=== PATIENT | female | born 1965 | race Caucasian/White ===

== ENCOUNTER 2020-08-07 16:17 | Outpatient (CLI) | payer SELFPAY ==
--- NOTE | ~2020-08-07 | MM_ITS ---
EXAMINATION: MM screening jann BI w agus HISTORY: Screening TECHNIQUE: Craniocaudal and mediolateral oblique 3-D tomosynthesis images were obtained and synthetic 2-D images were generated. CAD analysis was submitted and interpreted. COMPARISON: Comparison to multiple prior studies sequentially, with oldest reviewed study dated 11/2010. BREAST PARENCHYMAL COMPOSITION: There are scattered areas of fibroglandular density. FINDINGS: There is no evidence of suspicious mass, calcification, or architectural distortion to sugg est malignancy in either breast. There has been no suspicious interval change. IMPRESSION: 1. No mammographic evidence of malignancy. 2. Recommend routine screening mammography in one year. BI-RADS Category 1: Negative Reviewed, dictated and finalized at location A.
== END 2020-08-07 16:18 | disposition home or self-care (01) ==
LOC: ANHIMG 16:24
PROVIDERS: PCP Internal Medicine; Visit Provider Nurse Practitioner
DX: Z12.31 Encounter for screening mammogram for malignant neoplasm of breast (principal)
CPT/HCPCS: 77063; 77067

== ENCOUNTER 2020-08-17 09:12 | Outpatient (NON) | payer OTHER, SELFPAY ==
[2020-08-17 23:22] LABS: SARS-CoV-2 RNA PCR Negative
== END 2020-08-17 09:13 ==
PROVIDERS: PCP Internal Medicine; Visit Provider Nurse Practitioner
DX: Z20.828 Contact with and (suspected) exposure to other viral communicable diseases (principal); R50.9 Fever, unspecified
CPT/HCPCS: 87635; C9803; U0003

== ENCOUNTER 2021-11-05 09:02 | Outpatient (CLI) | payer SELFPAY ==
--- NOTE | ~2021-11-05 | MM_ITS ---
EXAMINATION: MM screening jann BI w agus HISTORY: Screening TECHNIQUE: Craniocaudal and mediolateral oblique 3-D tomosynthesis images were obtained and synthetic 2-D images were generated. CAD analysis was submitted and interpreted. COMPARISON: Comparison to multiple prior studies sequentially, with oldest reviewed study dated 07/18. BREAST PARENCHYMAL COMPOSITION: Breast composed of scattered areas of fibroglandular density. FINDINGS: There is a developing mass in the subareolar location of the left breast. The right breast is stable without evidence for malignancy. IMPRESSION: 1. Developing left breast mass. 2. Additional mammographic views and possible breast ultrasound are recommended. BI-RADS Category 0: Incomplete: Needs additional imaging evaluation. Reviewed, dictated and finalized at location A. ER PLANT ATTENDANT IMPRESSION: 1. Developing left breast mass. 2. Additional mammographic views and possible breast ultrasound are recommended . BI-RADS Category 0: Incomplete: Needs additional imaging evaluation.
--- NOTE | ~2021-11-05 | DEXA_ITS ---
Bone Density Report Name: SOPHIA ALONSO Age: 56 Sex: Female Ethnicity: White Date of : 1965 Indication: postmenopausal; hysterectomy; Referring Provider: Veronica Krishna Study: Bone densitometry was performed. Exam Date: November 05, 2021 Accession number: [id number] Bone Density: Region BMD T-score Z-score Classification AP Spine (L1-L4) 0.992 -0.5 0.6 Normal Femoral Neck (Left) 0.894 0.4 1.5 Normal Total Hip (Left) 1.093 1.2 2.0 Normal Total Hip Bilateral Avg 1.092 1.2 2.0 Normal Femoral Neck (Right) 0.908 0.5 1.6 Normal Total Hip (Right) 1.089 1.2 1.9 Normal World Health Organization criteria for BMD impression classify patients as: Normal (T-score at or above -1.0), Osteopenia (T-score between -1.0 and -2.5), or Osteoporosis (T-score at or below -2.5). 10-year Fracture Risk: FRAX not reported because: All T-scores for Spine Total, Hip Total, Femoral Neck at or above -1.0 Previous Exams: Region Exam Age BMD T-score BMD Change BMD Change Date g/cm2 vs Baseline vs Previous AP Spine(L1-L4) 11/05/2021 56 0.992 -0.5 -0.070(-6.6%)* -0.070(-6.6%)* 10/20/2016 51 1.062 0.1 Total Hip(Left) 11/05/2021 56 1.093 1.2 0.019(1.8%) 0.019(1.8%) 10/20/2016 51 1.074 1.1 Total Hip(Right) 11/05/2021 56 1.089 1.2 -0.058(-5.1%)* -0.058(-5.1%)* 10/20/2016 51 1.147 1.7 *Denotes significance at 95% confidence level, LSC for AP Spine = 0.022 g/cm2, LSC for Total Hip = 0.027 g/cm2 Clinical Information Provided by Patient: Has used the following medications: Vitamin D, Calcium Has the following medical conditions: Hysterectomy Patient maximum height was 63 Menopause Age: 48 Drinks caffeinated beverages Onset of menses at age 14 Number of children 2 Impression: The patient has normal bone mass. The BMD for the AP Spine(L1-L4) decreased, changing by -6.6% since the last DXA exam. The BMD for the Total Hip(Right) decreased, changing by -5.1% since the last DXA exam. Discussion: BONE DENSITY IS ABOVE THE MINIMUM DESIRABLE LEVEL AT ALL SKELETAL SITES TESTED. This patient?s bone mineral density is above the minimum desirable level (T-score -1.0 or better) at all sites measured. The patient should follow a healthful lifestyle (good nutrition with adequate calcium and vitamin D, and appropriate weight-bearing exercise). Follow-Up: Consider repeating this study in 3 to 4 years to reassess this patient's status, or sooner if there is
== END 2021-11-05 09:03 | disposition home or self-care (01) ==
LOC: ANHIMG 09:07
PROVIDERS: PCP Internal Medicine; Visit Provider Nurse Practitioner
DX: Z12.31 Encounter for screening mammogram for malignant neoplasm of breast (principal); Z78.0 Asymptomatic menopausal state; R92.8 Other abnormal and inconclusive findings on diagnostic imaging of breast
CPT/HCPCS: 77063; 77067; 77080

== ENCOUNTER 2021-11-19 11:12 | Outpatient (CLI) | payer SELFPAY ==
--- NOTE | ~2021-11-19 | MM_ITS ---
EXAMINATION: MM diagnostic jann LT w agus HISTORY: Possible left breast mass on screening mammogram TECHNIQUE: Additional 3-D tomosynthesis images of the left breast were performed and synthetic 2-D im ages were generated. CAD analysis was submitted and interpreted. COMPARISON: 11/05/2021,08/07/2020,10/20/2016 FINDINGS: There is a return to baseline fibroglandular appearance with spot compression of the left b reast in the area questioned on screening mammogram. No suspicious mass, calcification, or architectu ral distortion are identified. IMPRESSION: 1. No mammographic evidence of malignancy. 2. Recommend routine screening mammography in one year. BI-RADS Category 1: Negative Reviewed, dictated and finalized at location A. RY COOK APPRENTICE
== END 2021-11-19 11:13 | disposition home or self-care (01) ==
LOC: ANHIMG 11:18
PROVIDERS: PCP Internal Medicine; Visit Provider Nurse Practitioner
DX: R92.8 Other abnormal and inconclusive findings on diagnostic imaging of breast (principal)
CPT/HCPCS: 77061; 77065; G0279

== ENCOUNTER → 2021-12-27 00:31 | Outpatient (CLI) | payer MEDICAID, SELFPAY ==
[2021-12-27 13:55] LABS: Influenza A QL RT-PCR Negative (Negative); Influenza B QL RT-PCR Negative (Negative); SARS-CoV-2 RNA PCR Negative
== END ==
PROVIDERS: PCP Internal Medicine; Visit Provider Nurse Practitioner
DX: R05.9 Cough, unspecified (principal); Z20.822 Contact with and (suspected) exposure to COVID-19
CPT/HCPCS: 87502; C9803; U0003; U0005

== ENCOUNTER 2022-12-09 01:20 | Emergency (ER) | payer MEDICAID, SELFPAY ==
--- NOTE | ~2022-12-09 | CT_ITS ---
EXAMINATION: CT abdomen pelvis w con DATE: 12/09/2022 02:46 INDICATION: Right lower quadrant abdominal pain. TECHNIQUE: Computed tomography (CT) of the abdomen and pelvis was performed with 100 mL Omnipaque 350 intravenous contrast. Automated exposure control and iterative reconstruction technique were employe d. The dose-length product was 1073.72 mGy-cm. COMPARISON: None. FINDINGS: The visualized portions of the lung bases demonstrate minimal atelectasis. No pleural effus ion. The heart size is normal. No pericardial effusion. There is a small sliding hiatal hernia. There are surgical changes of gastric sleeve procedure. The liver, spleen, pancreas, adrenal glands, and k idneys are normal. The gallbladder is absent. There is fat stranding around an epiploic appendage of the ascending colon, consistent with epiploic appendagitis. The appendix is normal. There are no dila kim loops of bowel. There are no pathologically enlarged lymph nodes. There is no free intraperitonea l fluid. There is mild lumbar spondylosis. IMPRESSION: 1. Epiploic appendagitis of the ascending colon. Reviewed, dictated and finalized at location A. LEVEL DEVELOPER
[2022-12-09 01:26] VITALS: BP 139/68; PULSE 92; RESP 16; TEMP 36.9; O2SAT 96
--- NOTE | 2022-12-09 02:02 | PC.NURSE ---
Pt reports right side pain that started 3 days ago. States she woke up this morning to go to the bathroom and when she stood up the pain was so severe it took her breath and she broke into cold sweats. States she took some tylenol at home and is pain free at this time. Last BM was Wednesday and was normal. She felt nausea when pain spiked, but none now. Denies vomiting or diarrhea. Denies pain with urination or blood in her urine.
[2022-12-09 02:06] LABS: Basophils Absolute Auto 0.1 K/mm3 (0.0-0.1); Basophils Percent Auto 0.6 % (0.2-1.2); Eosinophils Absolute Auto 0.2 K/mm3 (0-0.3); Eosinophils Percent Auto 2.3 % (0-4.4); Hematocrit 41.8 % (37.0-47.0); Immature Granulocyte Absolute 0.02 K/mm3 (0.00-0.031); Immature Granulocyte Percent A 0.2 % (0-0.5); Lymphocytes Absolute Auto 3.02 K/mm3 (0.9-3.2); Lymphocytes Percent Auto 33.6 % (18.3-44.2); Mean Corpuscular HGB Conc 33.5 g/dl (32-36); Mean Corpuscular Hemoglobin 30.2 pg (26-34); Mean Corpuscular Volume 90.1 fl (80-100); Mean Platelet Volume 9.9 fl (7.4-10.4); Monocytes Absolute Auto 0.7 K/mm3 (0.1-0.6); Monocytes Percent Auto 7.8 % (2.6-8.5); Neutrophils Percent Auto 55.5 % (45.5-73.1); Platelet Count Result 300 k/mm3 (150-375); Red Blood Count 4.64 M/mm3 (4.2-5.4); Red Cell Distribution Width 12.3 % (11.5-14.5)
--- NOTE | 2022-12-09 02:09 | ED.ABDPAIN ---
HPI - Abdominal Pain General Chief Complaint: Abdominal Pain Stated Complaint: right lower abdominal pain Time Seen by Provider: 12/09/22 01:41 Source: patient Mode of arrival: ambulatory Limitations: no limitations History of Present Illness HPI narrative: 57-year-old female with past medical history of hypertension presents with right lower quadrant abdominal pain that began 3 days ago. The pain started when she was exercising and was initially mild. However at 0100 this morning she woke up with sharp 10 out of 10 pain that is worse when she took a deep breath. She became dizzy, diaphoretic, and had a syncopal episode that lasted 5 seconds which she believes was due to the pain. Denies fever, chills, cough, headache, chest pain, shortness of breath, nausea, vomiting, diarrhea, dysuria, urinary frequency, and urinary urgency. Related Data Home Medications Medication Instructions Recorded Confirmed aspirin 81 mg tablet,delayed 81 mg PO DAILY 08/16/20 08/15/21 release (Adult Low Dose Aspirin) cholecalciferol (vitamin D3) 25 25 mcg PO DAILY 08/16/20 08/15/21 mcg (1,000 unit) capsule multivitamin 1 tablet PO DAILY 08/16/20 08/15/21 krill oil 500 mg capsule mg PO DAILY 12/04/20 08/15/21 loratadine 10 mg tablet (Claritin) 10 mg PO DAILY 12/04/20 08/15/21 mecobalamin (vitamin B12) 5,000 mcg PO WEEKLY 12/04/20 08/15/21 mcg disintegrating tablet Allergies Allergy/AdvReac Type Severity Reaction Status Date / Time No Known Allergies Allergy Verified 12/09/22 01:21 [facility] Past Medical History Medical History (Updated 12/09/22 @ 04:16 by Sandip Wright MD) Chicken pox HTN (hypertension) Hyperlipidemia Left breast mass Surgical History Surgical History (Updated 12/09/22 @ 01:46 by Christine Sevilla RN) History of cholecystectomy History of hysterectomy Family History Family History Mother Family history of diabetes mellitus in first degree relative Hypertension Sibling Patient's brother is in good health Social History Social History Smoking status: Never smoker Smoking end date: 11/29/06 Alcohol intake: never Course Course Emergency Course: Remained pain-free majority of the time however she started having cramping of the abdomen I did give her Toradol and Zofran and subsided informed her about her lab work, CT findings. Vital Signs Vital signs: Vital Signs Temperature 36.9 C 12/09/22 01:26 Pulse Rate 92 12/09/22 01:26 Respiratory Rate 16 12/09/22 01:26 Blood Pressure 139/68 12/09/22 01:26 Pulse Oximetry 96 12/09/22 01:26 Oxygen Delivery Room Air 12/09/22 01:26 Temperature 36.9 C 12/09/22 01:26 Pulse Rate 78 12/09/22 03:27 Respiratory Rate 20 12/09/22 03:27 Blood Pressure 151/78 H 12/09/22 03:27 Pulse Oximetry 97 12/09/22 03:27 Oxygen Delivery Room Air 12/09/22 01:26 MDM - Abdominal Pain MDM Narrative Medical decision making narrative: Renal colic, biliary colic, acute appendicitis Lab Data 12/09/22 01:50 12/09/22 01:50 Labs: Lab Results 12/09/22 12/09/22 12/09/22 Range/Units 01:50 01:50 01:50 WBC 9.0 (4.5-10.0) K/mm3 RBC 4.64 (4.2-5.4) M/mm3 Hgb 14.0 (12.0-15.0) g/dL Hct 41.8 (37.0-47.0) % MCV 90.1 (80-100) fl MCH 30.2 (26-34) pg MCHC 33.5 (32-36) g/dl RDW 12.3 (11.5-14.5) % Plt Count 300 (150-375) k/mm3 MPV 9.9 (7.4-10.4) fl Immature Gran % (Auto) 0.2 (0-0.5) % Neut % (Auto) 55.5 (45.5-73.1) % Lymph % (Auto) 33.6 (18.3-44.2) % [place] % (Auto) 7.8 (2.6-8.5) % Eos % (Auto) 2.3 (0-4.4) % Baso % (Auto) 0.6 (0.2-1.2) % Lymph # (Auto) 3.02 (0.9-3.2) K/mm3 [place] # (Auto) 0.7 H (0.1-0.6) K/mm3 Eos # (Auto) 0.2 (0-0.3) K/mm3 Baso # (Auto) 0.1 (0.0-0.1) K/mm3 Abs Immat Gran (auto) 0.02 (0.0
[2022-12-09 02:12] LABS: Appearance Urine Slightly Cloudy (Clear); Bilirubin Urine Negative (Negative); Blood Urine Negative (Negative); Color Urine Yellow (Yellow); Glucose Urine UA Negative (Negative); Ketones Urine Negative (Negative); Leukocyte Esterase Ur Negative LEU/UL (Negative); Nitrate Urine Negative (Negative); Protein Urine 1+ mg/dL (Negative); Specific Grav Ur 1.015 (1.001-1.035); Urobilinogen Urine 0.2 mg/dL (<2.0); pH Urine >=9.0 (5.0-9.0)
[2022-12-09 02:19] LABS: Alanine Aminotransferase 34 U/L (6-35); Albumin Level 4.5 g/dL (3.5-5.1); Alkaline Phosphatase 94 U/L (38-126); Anion Gap 8 mmol/L (8-16); Aspartate Amino Transferase 31 U/L (14-36); Bacteria Urine Trace /hpf; Bilirubin,Total 0.4 mg/dL (0.2-1.3); Blood Urea Nitrogen 19 mg/dL (7-17); Calcium 9.3 mg/dL (8.4-10.2); Carbon Dioxide 28 mmol/L (22-30); Chloride 100 mmol/L (98-107); Estimated CRCL calculation 80 ml/min; Estimated Glomerular Filt Rate > 60; Glucose 119 mg/dL (65-110); Lipase 191 U/L (23-300); Mucus Urine Rare /lpf; Potassium 3.9 mmol/L (3.4-5.0); Sodium 136 mmol/L (137-145); Squamous Epithelial Cell Urine Rare /hpf (Few); WBC Urine 0-3 /hpf
[2022-12-09 02:26] LABS: Add Urine Microscopic? YES
[2022-12-09] MEDS: KETOROLAC 30 MG/ML VIAL (*BKC) IV PUSH (03:21)
[2022-12-09] MEDS: ONDANSETRON INJ 4 MG/2 ML VIAL IV PUSH (03:21)
[2022-12-09 03:27] VITALS: BP 151/78; PULSE 78; RESP 20; O2SAT 97
[2022-12-09 04:33] VITALS: BP 150/82; PULSE 77; RESP 18; O2SAT 99
== END 2022-12-09 04:34 | disposition home or self-care (01) ==
PROVIDERS: Emergency Provider Family Medicine; PCP Internal Medicine
DX: K63.89 Other specified diseases of intestine (principal); I10 Essential (primary) hypertension; E78.5 Hyperlipidemia, unspecified; Z90.710 Acquired absence of both cervix and uterus; Z87.891 Personal history of nicotine dependence; Z79.82 Long term (current) use of aspirin
CPT/HCPCS: 36415; 74177; 80053; 81001; 83690; 85025; 96374; 96375; 99284; J1885; J2405; Q9967

== ENCOUNTER 2023-01-22 14:00 | Outpatient (CLI) | payer MEDICAID, SELFPAY ==
--- NOTE | ~2023-01-22 | MM_ITS ---
EXAMINATION: MM screening jann BI w agus HISTORY: Screening mammogram TECHNIQUE: Craniocaudal and mediolateral oblique 3-D tomosynthesis images were obtained and synthetic 2-D images were generated. CAD analysis was submitted and interpreted. COMPARISON: 11/19/2021 diagnostic left mammogram 11/05/2021, 08/17/2020, 10/20/2016 bilateral screening mammogram examinations BREAST PARENCHYMAL COMPOSITION: There are scattered areas of fibroglandular density. FINDINGS: There is no evidence of suspicious mass, calcification, or architectural distortion to sugg est malignancy in either breast. There has been no suspicious interval change. IMPRESSION: 1. No mammographic evidence of malignancy. 2. Recommend routine screening mammography in one year. BI-RADS Category 1: Negative Reviewed, dictated and finalized at location A. ORATION SILVERSMITH
== END 2023-01-22 14:01 | disposition home or self-care (01) ==
LOC: ANHIMG 14:03
PROVIDERS: PCP Internal Medicine; Visit Provider Internal Medicine
DX: Z12.31 Encounter for screening mammogram for malignant neoplasm of breast (principal)
CPT/HCPCS: 77063; 77067

== ENCOUNTER 2023-07-24 07:28 | Outpatient (CLI) | payer OTHER, SELFPAY ==
[2023-07-24 08:58] LABS: Alanine Aminotransferase 33 U/L (6-35); Albumin Level 4.3 g/dL (3.5-5.1); Alkaline Phosphatase 71 U/L (38-126); Anion Gap 6 mmol/L (8-16); Aspartate Amino Transferase 35 U/L (14-36); Bilirubin,Total 0.6 mg/dL (0.2-1.3); Blood Urea Nitrogen 20 mg/dL (7-17); Carbon Dioxide 27 mmol/L (22-30); Chloride 105 mmol/L (98-107); Cholesterol 238 mg/dL (0-200); Estimated Glomerular Filt Rate > 60; Glucose 101 mg/dL (65-110); HDL Direct 42 mg/dL; Potassium 3.8 mmol/L (3.4-5.0); Sodium 138 mmol/L (137-145); Triglycerides 207 mg/dL (<150)
[2023-07-24 09:09] LABS: LDL Cholesterol Direct 141 mg/dL
[2023-07-24 09:10] LABS: Hemoglobin A1C 5.5 % (<5.7)
== END 2023-07-24 07:29 | disposition home or self-care (01) ==
PROVIDERS: PCP Nurse Practitioner; Visit Provider Nurse Practitioner
DX: E78.5 Hyperlipidemia, unspecified (principal); Z13.29 Encounter for screening for other suspected endocrine disorder; R73.9 Hyperglycemia, unspecified
CPT/HCPCS: 36415; 80053; 80061; 83036; 84443

== ENCOUNTER 2023-10-08 08:11 | Outpatient (CLI) | payer OTHER, SELFPAY ==
--- NOTE | ~2023-10-08 | XR_ITS ---
EXAMINATION: XR UGI wo kub DATE: 10/08/2023 09:10 INDICATION: Epigastric pain and reflux TECHNIQUE: The patient drank thick barium, gas-producing crystals, and thin barium. A total of fluoro scopic images of the esophagus, stomach, and proximal small bowel were obtained. Fluoroscopy exposure time was minutes. COMPARISON: CT dated 12/09/2022 FINDINGS: The esophagus is normal without mass or stricture. Esophageal motility is normal. Small to moderate-sized sliding-type hiatal hernia with gastroesophageal junction approximately 7-8 cm above t he level of the diaphragm. There is reflux of contrast into the intrathoracic portion of the stomach but no further gastroesophageal reflux was able to be elicited with provocative maneuvers. Stomach wh en distended appears relatively narrow throughout its course consistent with prior sleeve gastrectomy with suture line seen along the greater curvature of the stomach on prior CT. The visualized proxima l small bowel is normal. IMPRESSION: 1. Small to moderate-sized sliding-type hiatal hernia with reflux of contrast into the intrathoracic portion stomach but no further gastroesophageal reflux was able to be elicited with provocative maneu vers. 2. Decreased distention of the stomach which appears narrow throughout its course consistent with pauline or sleeve gastrectomy. Reviewed, dictated and finalized at location A. R IMPRESSION: 1. Small to moderate-sized sliding-type hiatal hernia with reflux of contrast i nto the intrathoracic portion stomach but no further gastroesophageal reflux wa s able to be elicited with provocative maneuvers. 2. Decreased distention of the stomach which appears narrow throughout its cour se consistent with prior sleeve gastrectomy.
== END 2023-10-08 08:12 | disposition home or self-care (01) ==
PROVIDERS: PCP Nurse Practitioner; Visit Provider Nurse Practitioner
DX: R10.13 Epigastric pain (principal); K44.9 Diaphragmatic hernia without obstruction or gangrene
CPT/HCPCS: 74240

== ENCOUNTER 2023-10-10 14:40 | Emergency (ER) | payer OTHER, SELFPAY ==
[2023-10-10 14:47] VITALS: BP 144/68; PULSE 91; RESP 16; TEMP 36.8; O2SAT 98
--- NOTE | 2023-10-10 14:49 | ED.FEMALEGU ---
HPI - Female Genitourinary General Chief complaint: Urogenital-Female Stated complaint: Uti symptoms Time Seen by Provider: 10/10/23 14:49 Source: patient, RN notes reviewed and old records reviewed Mode of arrival: ambulatory Limitations: no limitations History of Present Illness HPI Narrative: 58 year old female presents to [facility] care with complaints of UTI symptoms of urinary burning and also urgency for the past 3 days. Patient reports that this once came up after having a head cold for several days and has been drinking white soda. Patient reports that she usually gets 3-4 UTI's per year and she has seen an urologist in the past for her symptoms. Patient reports that she uses [employer] PH balanced perineal wipes when she gets symptoms and sometimes that will resolve her symptoms, has not taken any AZO for her symptoms. Patient denies any fevers, chills or sweats, denies any vomiting diarrhea or any CVA tenderness. MD elicited complaint: UTI Pertinent past history: recurrent UTIs Onset (ago): day(s) (3) Location of symptoms: perineum Severity scale (1-10): 4 Vaginal discharge: none Related Data Home Medications Medication Instructions Recorded Confirmed aspirin 81 mg tablet,delayed 81 mg PO DAILY 08/16/20 10/10/23 release (Adult Low Dose Aspirin) cholecalciferol (vitamin D3) 25 25 mcg PO DAILY 08/16/20 10/10/23 mcg (1,000 unit) capsule multivitamin 1 tablet PO DAILY 08/16/20 10/10/23 krill oil 500 mg capsule 500 mg PO DAILY 12/04/20 10/10/23 loratadine 10 mg tablet (Claritin) 10 mg PO DAILY 12/04/20 10/10/23 calcium acetate 667 mg tablet 667 mg PO ONCE 12/17/22 10/10/23 mecobalamin (vitamin B12) 5,000 5,000 mcg PO DAILY 07/23/23 10/10/23 mcg disintegrating tablet Allergies Allergy/AdvReac Type Severity Reaction Status Date / Time No Known Allergies Allergy Verified 10/10/23 14:52 Review of Systems Review of Systems: CONSTITUTIONAL: Denies fever, chills, or sweats. CARDIOVASCULAR: Denies chest pain, palpitations, or edema. RESPIRATORY: Denies cough or dyspnea. GASTROINTESTINAL: Denies abdominal pain, nausea, vomiting, or diarrhea. GENITOURINARY: Reports dysuria, frequency, urgency. Denies flank pain or hematuria. SKIN: Denies rash or itching. MUSCULOSKELETAL: Denies back pain or myalgia. Denies CVA tenderness NEUROLOGIC: Denies headache All systems reviewed & are unremarkable except as noted in HPI and below PMFSH Past Medical History Medical History (Updated 10/11/23 @ 10:51 by Rhina Gibbs NP) Chicken pox HTN (hypertension) Hyperlipidemia Left breast mass UTI (urinary tract infection) Surgical History Surgical History H/O gastric sleeve History of cholecystectomy History of hysterectomy Family History Family History Mother Family history of diabetes mellitus in first degree relative Hypertension COPD (chronic obstructive pulmonary disease) Social History Social History Smoking packs per day: 0 Smoking cigarettes per day: 0.0 Years smoked: 10 Smoking pack-years: 0.00 Smoking status: Former smoker Tobacco type: cigarettes Smoking end date: 11/29/06 Alcohol intake: never Substance use: never Lack of Transportation: No Lack of Food: Sometimes True Current Housing: I Have Housing Concerned About Future Housing: No Difficulty Paying Gas/Electric Bills: No Difficulty Paying for Meds: No Currently Unemployed: No Education: High School Diploma/GED Difficulty w/ Childcare or Family Care: No Living arrangements: with family Additional occupation/education comments: self employed Sexual Orientation (if Verbalized by the Patient): Straight or Heterosexual Comments At time of signature, agree with nursing past medical, surgical, social and family history. There is no rel
== END 2023-10-10 15:16 | disposition home or self-care (01) ==
PROVIDERS: Emergency Provider Registered Nurse; PCP Nurse Practitioner
DX: N39.0 Urinary tract infection, site not specified (principal); B96.20 Unspecified Escherichia coli [E. coli] as the cause of diseases classified elsewhere; Z87.891 Personal history of nicotine dependence; I10 Essential (primary) hypertension; E78.5 Hyperlipidemia, unspecified; Z98.84 Bariatric surgery status
CPT/HCPCS: 81003; 87077; 87086; 87088; 87186; 99213; G0463

== ENCOUNTER 2023-12-03 01:04 | Day surgery (SDC) | payer OTHER, SELFPAY ==
[2023-11-08 13:05] VITALS: BMI 33.5
--- NOTE | 2023-12-01 09:44 | SUR.PREOP ---
Patient called regarding upcoming procedure. Voicemail left regarding appointment times.
[2023-12-03 09:42] VITALS: BP 116/73; PULSE 99; RESP 16; TEMP 36.1; O2SAT 99
[2023-12-03] MEDS: LACTATED RINGERS 1,000 ML 150 ML IV CONT (09:44)
--- NOTE | 2023-12-03 10:48 | PM.HPGS ---
History of Present Illness History of Present Illness Consent: Risks, benefits, and alternatives have been discussed and questions answered. Patient agrees to proceed with procedure. Chief complaint: Family history of colon cancer Narrative: Roseline Wagner is a 58 year old female Referred for colon cancer screening. Her father had colon cancer. Her last colonoscopy was 7 years ago. Review of Systems Review of Systems: All systems reviewed & are unremarkable except as noted in HPI and below PMFSH Past Medical History Medical History Chicken pox HTN (hypertension) Hyperlipidemia Left breast mass UTI (urinary tract infection) Surgical History Surgical History H/O gastric sleeve History of cholecystectomy History of hysterectomy Family History Family History Mother Family history of diabetes mellitus in first degree relative Hypertension COPD (chronic obstructive pulmonary disease) Social History Social History Smoking packs per day: 1 Smoking cigarettes per day: 20.0 Years smoked: 10 Smoking pack-years: 10.00 Smoking status: Former smoker Tobacco type: cigarettes Smoking end date: 11/29/06 Alcohol intake: never Substance use: never Substance use type: does not use Lack of Transportation: No Lack of Food: Sometimes True Current Housing: I Have Housing Concerned About Future Housing: No Difficulty Paying Gas/Electric Bills: No Difficulty Paying for Meds: No Currently Unemployed: No Education: High School Diploma/GED Difficulty w/ Childcare or Family Care: No Living arrangements: with family Additional occupation/education comments: self employed Sexual Orientation (if Verbalized by the Patient): Straight or Heterosexual Spiritual care concerns: No Meds Home Medications and Allergies Home Medications Medication Instructions Recorded Confirmed Type aspirin 81 mg tablet,delayed 81 mg PO DAILY 08/16/20 12/03/23 History release (Adult Low Dose Aspirin) cholecalciferol (vitamin D3) 25 25 mcg PO DAILY 08/16/20 12/03/23 History mcg (1,000 unit) capsule multivitamin 1 tablet PO DAILY 08/16/20 12/03/23 History krill oil 500 mg capsule 500 mg PO DAILY 12/04/20 12/03/23 History loratadine 10 mg tablet (Claritin) 10 mg PO DAILY 12/04/20 12/03/23 History calcium acetate 667 mg tablet 667 mg PO DAILY 12/17/22 12/03/23 History losartan 25 mg tablet 25 mg PO DAILY #90 tabs 07/23/23 12/03/23 Rx mecobalamin (vitamin B12) 5,000 5,000 mcg PO DAILY 07/23/23 12/03/23 History mcg disintegrating tablet rosuvastatin 10 mg tablet 10 mg PO DAILY #90 tabs 07/27/23 12/03/23 Rx metoprolol succinate 25 mg See Rx Instructions .Route 08/27/23 12/03/23 Rx tablet,extended release 24 hr .COMPLEX #90 tabs Allergies Allergy/AdvReac Type Severity Reaction Status Date / Time No Known Allergies Allergy Verified 12/03/23 09:41 Vital Signs Vital Signs - 24 hr 12/03/23 09:42 Temperature 36.1 C L Pulse Rate 99 Respiratory Rate 16 Blood Pressure 116/73 Pulse Oximetry 99 Oxygen Delivery Room Air Exam Const: General: alert Orientation/consciousness: patient oriented x3 Resp: Auscultation: clear to auscultation bilaterally Cardio: Rhythm: regular rhythm GI: GI Palp: Yes Soft to palpation and No Tenderness to palpation present (GI) Neuro: General: patient oriented x3 Assessment and Plan Assessment and plan (1) Screening for colon cancer: Code(s): Z12.11 - Encounter for screening for malignant neoplasm of colon Status: Acute Assessment and Plan: Colonoscopy with possible biopsy or polypectomy or cautery or injection of substances.
--- NOTE | 2023-12-03 10:53 | WPDANESEPPF ---
Anes - Initial Pre Proc Eval Procedure: Operation Date: 12/03/23 11:00 Proposed Procedures p Colonoscopy - Momo Mascorro MD Date/Time: 12/03/23 10:53 Surgeon: Momo Mascorro MD Pre Op Diagnosis: Family history of colon cancer Patient Data Age: 58 Gender: F Height: 1.6 m Weight: 84.8 kg Last Vital Signs Temp 97 F L 12/03/23 09:42 Pulse 99 12/03/23 09:42 Resp 16 12/03/23 09:42 BP 116/73 12/03/23 09:42 Pulse Ox 99 12/03/23 09:42 O2 Del Method Room Air 12/03/23 09:42 Allergies Allergy/AdvReac Type Severity Reaction Status Date / Time No Known Allergies Allergy Verified 12/03/23 09:41 Home Medications Medication Instructions Recorded Confirmed Type aspirin 81 mg tablet,delayed 81 mg PO DAILY 08/16/20 12/03/23 History release (Adult Low Dose Aspirin) cholecalciferol (vitamin D3) 25 25 mcg PO DAILY 08/16/20 12/03/23 History mcg (1,000 unit) capsule multivitamin 1 tablet PO DAILY 08/16/20 12/03/23 History krill oil 500 mg capsule 500 mg PO DAILY 12/04/20 12/03/23 History loratadine 10 mg tablet (Claritin) 10 mg PO DAILY 12/04/20 12/03/23 History calcium acetate 667 mg tablet 667 mg PO DAILY 12/17/22 12/03/23 History losartan 25 mg tablet 25 mg PO DAILY #90 tabs 07/23/23 12/03/23 Rx mecobalamin (vitamin B12) 5,000 5,000 mcg PO DAILY 07/23/23 12/03/23 History mcg disintegrating tablet rosuvastatin 10 mg tablet 10 mg PO DAILY #90 tabs 07/27/23 12/03/23 Rx metoprolol succinate 25 mg See Rx Instructions .Route 08/27/23 12/03/23 Rx tablet,extended release 24 hr .COMPLEX #90 tabs Patient hx anesthesia problems: none Family hx anesthesia problems: none Results Review: All pre-operative results and documents have been reviewed as part of the pre-operative evaluation. [facility] Past Medical History Medical History Chicken pox HTN (hypertension) Hyperlipidemia Left breast mass UTI (urinary tract infection) Surgical History Surgical History H/O gastric sleeve History of cholecystectomy History of hysterectomy Family History Family History Mother Family history of diabetes mellitus in first degree relative Hypertension COPD (chronic obstructive pulmonary disease) Social History Social History Smoking packs per day: 1 Smoking cigarettes per day: 20.0 Years smoked: 10 Smoking pack-years: 10.00 Smoking status: Former smoker Tobacco type: cigarettes Smoking end date: 11/29/06 Alcohol intake: never Substance use: never Substance use type: does not use Lack of Transportation: No Lack of Food: Sometimes True Current Housing: I Have Housing Concerned About Future Housing: No Difficulty Paying Gas/Electric Bills: No Difficulty Paying for Meds: No Currently Unemployed: No Education: High School Diploma/GED Difficulty w/ Childcare or Family Care: No Living arrangements: with family Additional occupation/education comments: self employed Sexual Orientation (if Verbalized by the Patient): Straight or Heterosexual Spiritual care concerns: No Anes - Eval Final PreProcedure Day of Procedure 12/03/23 10:53 Patient weight: obese Heart: regular rate and rhythm Lungs: clear to auscultation Airway: Mallampati scale class II Neurological: alert and oriented Last oral intake: >/= 8 hours ASA classification: II Emergent: no Anesthetic plan: proceed Anesthesia type and monitoring: general GIVS and standard monitoring Results Review: All pre-operative results and documents have been reviewed as part of the pre-operative evaluation. Informed Consent: The patient's anesthetic plan and its attendant risks and benefits were discussed with the patient/family/POA. Questions were solicited and answers provided to the sa
[2023-12-03 11:31] VITALS: BP 130/72; PULSE 90; RESP 25; O2SAT 99
[2023-12-03 11:41] VITALS: BP 135/71; PULSE 83; RESP 14; O2SAT 100
[2023-12-03 11:51] VITALS: BP 112/63; PULSE 78; RESP 22; O2SAT 100
== END 2023-12-03 12:04 | disposition home or self-care (01) ==
PROVIDERS: PCP Nurse Practitioner; Visit Provider Internal Medicine Gastroenterology
PROC: 0DJD8ZZ Inspection of Lower Intestinal Tract, Via Natural or Artificial Opening Endoscopic (ICD-10-PCS; CPT 45378; principal; 2023-12-03 11:00)
DX: Z12.11 Encounter for screening for malignant neoplasm of colon (principal); Z80.0 Family history of malignant neoplasm of digestive organs; K64.8 Other hemorrhoids; I10 Essential (primary) hypertension; E78.5 Hyperlipidemia, unspecified; Z87.891 Personal history of nicotine dependence
CPT/HCPCS: 45378; J2001; J2704; J7120

== ENCOUNTER 2024-01-25 08:15 | Outpatient (CLI) | payer OTHER, SELFPAY ==
[2024-01-25 09:10] LABS: Hematocrit 41.4 % (37.0-47.0); Hemoglobin 13.7 g/dL (12.0-15.0); Mean Corpuscular HGB Conc 33.1 g/dl (32-36); Mean Corpuscular Volume 90.8 fl (80-100); Mean Platelet Volume 10.3 fl (7.4-10.4); Platelet Count Result 265 k/mm3 (150-375); Red Blood Count 4.56 M/mm3 (4.2-5.4); Red Cell Distribution Width 12.4 % (11.5-14.5); White Blood Count 6.4 K/mm3 (4.5-10.0)
[2024-01-25 09:19] LABS: Alanine Aminotransferase 43 U/L (6-35); Albumin Level 4.5 g/dL (3.5-5.1); Alkaline Phosphatase 72 U/L (38-126); Anion Gap 6 mmol/L (8-16); Aspartate Amino Transferase 41 U/L (14-36); Bilirubin,Total 0.7 mg/dL (0.2-1.3); Blood Urea Nitrogen 14 mg/dL (7-17); Calcium 9.5 mg/dL (8.4-10.2); Carbon Dioxide 30 mmol/L (22-30); Chloride 105 mmol/L (98-107); Cholesterol 157 mg/dL (0-200); Estimated Glomerular Filt Rate > 60; Glucose 102 mg/dL (65-110); HDL Direct 51 mg/dL; Potassium 3.7 mmol/L (3.4-5.0); Sodium 141 mmol/L (137-145); Triglycerides 153 mg/dL (<150)
[2024-01-25 09:55] LABS: LDL Cholesterol Direct 80 mg/dL
== END 2024-01-25 08:16 | disposition home or self-care (01) ==
LOC: ANHLAB 08:17
PROVIDERS: PCP Nurse Practitioner; Visit Provider Nurse Practitioner
DX: E78.5 Hyperlipidemia, unspecified (principal); R73.9 Hyperglycemia, unspecified; Z13.29 Encounter for screening for other suspected endocrine disorder
CPT/HCPCS: 36415; 80053; 80061; 83036; 84443; 85027

== ENCOUNTER 2024-02-24 08:55 | Outpatient (CLI) | payer OTHER, SELFPAY ==
[2024-02-29 14:11] LABS: FSH 63.5 mIU/mL (***)
[2024-03-04 22:42] LABS: Estradiol, Ultrasensitive 5 pg/mL
== END 2024-02-24 08:56 | disposition home or self-care (01) ==
PROVIDERS: PCP Nurse Practitioner; Visit Provider Student in an Organized Health Care Education/Training Program
DX: N95.1 Menopausal and female climacteric states (principal)
CPT/HCPCS: 36415; 82670; 83001; 84443

== ENCOUNTER 2024-03-10 19:10 | Emergency (ER) | payer OTHER, SELFPAY ==
[2024-03-10 19:29] VITALS: BP 146/89; PULSE 85; RESP 18; TEMP 36.8; O2SAT 98
--- NOTE | 2024-03-10 19:39 | ED.URI ---
HPI - URI/Sore Throat General Chief Complaint: Upper Respiratory Infection Stated Complaint: Sinus/Sore Throat Time Seen by Provider: 03/10/24 19:39 Source: patient Mode of arrival: ambulatory Limitations: no limitations History of Present Illness HPI Narrative: 59-year-old female presents with complaint nasal congestion, postnasal drainage, sore throat, cough, fatigue for 5-6 days. Afebrile. Patient states throat hurts really bad . Taking [place] without relief of symptoms. Reports that nasal drainage has changed from clear to yellowish green. All systems reviewed and negative except as noted above. Related Data Home Medications Medication Instructions Recorded Confirmed aspirin 81 mg tablet,delayed 81 mg PO DAILY 08/16/20 03/10/24 release (Adult Low Dose Aspirin) cholecalciferol (vitamin D3) 25 25 mcg PO DAILY 08/16/20 03/10/24 mcg (1,000 unit) capsule multivitamin 1 tablet PO DAILY 08/16/20 03/10/24 krill oil 500 mg capsule 500 mg PO DAILY 12/04/20 03/10/24 loratadine 10 mg tablet (Claritin) 10 mg PO DAILY 12/04/20 03/10/24 calcium acetate 667 mg tablet 667 mg PO DAILY 12/17/22 03/10/24 mecobalamin (vitamin B12) 5,000 5,000 mcg PO DAILY 07/23/23 03/10/24 mcg disintegrating tablet tobramycin 0.3 % eye drops 1 drp ophthalmic (eye) DIRECTED 03/10/24 03/10/24 Allergies Allergy/AdvReac Type Severity Reaction Status Date / Time No Known Allergies Allergy Verified 03/10/24 19:12 Review of Systems Review of Systems: CONSTITUTIONAL: Denies fever, chills, or sweats. reports fatigue. EYES: Denies visual changes, redness, or discharge. ENT: Reports rhinorrhea, congestion, sore throat. Denies otalgia. CARDIOVASCULAR: Denies chest pain, palpitations, or edema. RESPIRATORY: Reports cough. Denies dyspnea. GASTROINTESTINAL: Denies abdominal pain, nausea, vomiting, or diarrhea. GENITOURINARY: Denies dysuria or hematuria. SKIN: Denies rash or itching. MUSCULOSKELETAL: Denies back pain, joint pain, or myalgia. NEUROLOGIC: Denies headache, numbness, or weakness. PSYCHIATRIC: Denies anxiety or depression. All other systems reviewed are negative, except as documented in HPI. [facility] Past Medical History Medical History Chicken pox HTN (hypertension) Hyperlipidemia Left breast mass UTI (urinary tract infection) Surgical History Surgical History H/O gastric sleeve History of cholecystectomy History of hysterectomy Family History Family History Mother Family history of diabetes mellitus in first degree relative Hypertension COPD (chronic obstructive pulmonary disease) Social History Social History Smoking packs per day: 1 Smoking cigarettes per day: 20.0 Years smoked: 10 Smoking pack-years: 10.00 Smoking status: Former smoker Tobacco type: cigarettes Smoking end date: 11/29/06 Alcohol intake: never Substance use: never Substance use type: does not use Lack of Transportation: No Lack of Food: Sometimes True Current Housing: I Have Housing Concerned About Future Housing: No Difficulty Paying Gas/Electric Bills: No Difficulty Paying for Meds: No Currently Unemployed: No Education: High School Diploma/GED Difficulty w/ Childcare or Family Care: No Living arrangements: with family Additional occupation/education comments: self employed Sexual Orientation (if Verbalized by the Patient): Straight or Heterosexual Spiritual care concerns: No Comments At time of signature, agree with nursing past medical, surgical, social and family history. There is no relevant family history pertinent to the presenting complaint. Exam Narrative: GENERAL: This is a well-nourished, well-developed patient, in no apparent distress. HEAD: normocephal
== END 2024-03-10 20:10 | disposition home or self-care (01) ==
PROVIDERS: Emergency Provider Nurse Practitioner Family; PCP Nurse Practitioner
DX: J01.90 Acute sinusitis, unspecified (principal); Z20.822 Contact with and (suspected) exposure to COVID-19; Z87.891 Personal history of nicotine dependence; I10 Essential (primary) hypertension; E78.5 Hyperlipidemia, unspecified; Z98.84 Bariatric surgery status; Z79.82 Long term (current) use of aspirin
CPT/HCPCS: 87081; 87426; 87804; 87880; 99213; G0463

== ENCOUNTER 2024-04-17 18:55 | Emergency (ER) | payer OTHER, SELFPAY ==
[2024-04-17 19:03] VITALS: BP 125/108; PULSE 78; RESP 18; TEMP 36.6; O2SAT 99
--- NOTE | 2024-04-17 19:22 | ED.URI ---
HPI - URI/Sore Throat General Chief Complaint: Upper Respiratory Infection Stated Complaint: Strep Symptoms Source: patient and RN notes reviewed Mode of arrival: ambulatory Limitations: no limitations History of Present Illness HPI Narrative: Patient is a 59-year-old female who presents to the [facility] with complaints of sore throat starting yesterday. Patient also reports worsening sore throat. She also endorses nasal congestion and headache. She denies recent fevers. Denies cough, chest pain, or shortness of breath. Patient states that she frequently watches her grandkids that just tested positive for strep. She states that her son-in-law also tested positive. Related Data Home Medications Medication Instructions Recorded Confirmed aspirin 81 mg tablet,delayed 81 mg PO DAILY 08/16/20 04/17/24 release (Adult Low Dose Aspirin) cholecalciferol (vitamin D3) 25 25 mcg PO DAILY 08/16/20 04/17/24 mcg (1,000 unit) capsule multivitamin 1 tablet PO DAILY 08/16/20 04/17/24 loratadine 10 mg tablet (Claritin) 10 mg PO DAILY 12/04/20 04/17/24 calcium acetate 667 mg tablet 667 mg PO DAILY 12/17/22 04/17/24 mecobalamin (vitamin B12) 5,000 5,000 mcg PO DAILY 07/23/23 04/17/24 mcg disintegrating tablet tobramycin 0.3 % eye drops 1 drp ophthalmic (eye) DIRECTED 03/10/24 03/10/24 Allergies Allergy/AdvReac Type Severity Reaction Status Date / Time paroxetine [From Paxil] Allergy Severe Difficulty Verified 04/17/24 19:02 Swallowing Review of Systems Review of Systems: CONSTITUTIONAL: Denies fever, chills, or sweats. EYES: Denies visual changes, redness, or discharge. ENT: Denies otalgia. Reports sore throat. Reports congestion. CARDIOVASCULAR: Denies chest pain, palpitations, or edema. RESPIRATORY: Denies cough or dyspnea. GASTROINTESTINAL: Denies abdominal pain, nausea, vomiting, or diarrhea. GENITOURINARY: Denies dysuria or hematuria. SKIN: Denies rash or itching. MUSCULOSKELETAL: Denies back pain, joint pain, or myalgia. NEUROLOGIC: Reports headache but denies numbness or weakness. Pertinent positives per HPI. PMF Past Medical History Medical History Chicken pox HTN (hypertension) Hyperlipidemia Left breast mass UTI (urinary tract infection) Surgical History Surgical History H/O gastric sleeve History of cholecystectomy History of hysterectomy Family History Family History Mother Family history of diabetes mellitus in first degree relative Hypertension COPD (chronic obstructive pulmonary disease) Social History Social History Smoking packs per day: 1 Smoking cigarettes per day: 20.0 Years smoked: 10 Smoking pack-years: 10.00 Smoking status: Former smoker Tobacco type: cigarettes Smoking end date: 11/29/06 Alcohol intake: never Substance use: never Substance use type: does not use Lack of Transportation: No Lack of Food: Sometimes True Current Housing: I Have Housing Concerned About Future Housing: No Difficulty Paying Gas/Electric Bills: No Difficulty Paying for Meds: No Currently Unemployed: No Education: High School Diploma/GED Difficulty w/ Childcare or Family Care: No Living arrangements: with family Additional occupation/education comments: self employed Sexual Orientation (if Verbalized by the Patient): Straight or Heterosexual Spiritual care concerns: No Comments At the time of my signature, I reviewed and agree with the nursing past medical, surgical, social, and family history. There is no relevant family history pertinent to the patient complaint. Exam Narrative: GENERAL: This is a well-nourished, well-developed patient, in no apparent distress. HEAD: normocephalic, atraumatic. EYES: Scl
== END 2024-04-17 19:43 | disposition home or self-care (01) ==
PROVIDERS: Emergency Provider Nurse Practitioner; PCP Nurse Practitioner
DX: J02.9 Acute pharyngitis, unspecified (principal); Z87.891 Personal history of nicotine dependence; I10 Essential (primary) hypertension; E78.5 Hyperlipidemia, unspecified; Z98.84 Bariatric surgery status; Z79.82 Long term (current) use of aspirin
CPT/HCPCS: 87081; 87880; 99213; G0463

== ENCOUNTER 2024-05-13 11:06 | Outpatient (CLI) | payer OTHER, SELFPAY ==
--- NOTE | ~2024-05-13 | MM_ITS ---
EXAMINATION: MM screening jann BI w agus HISTORY: Screening TECHNIQUE: Craniocaudal and mediolateral oblique 3-D tomosynthesis images were obtained and synthetic 2-D images were generated. CAD analysis was submitted and interpreted. COMPARISON: Comparison to multiple prior studies sequentially, with oldest reviewed study dated 08/31. BREAST PARENCHYMAL COMPOSITION: Not dense: There are scattered areas of fibroglandular density. FINDINGS: There is no evidence of suspicious mass, calcification, or architectural distortion to sugg est malignancy in either breast. There has been no suspicious interval change. IMPRESSION: 1. No mammographic evidence of malignancy. 2. Recommend routine screening mammography in one year. BI-RADS Category 1: Negative Reviewed, dictated and finalized at location B.
== END 2024-05-13 11:07 | disposition home or self-care (01) ==
PROVIDERS: PCP Nurse Practitioner; Visit Provider Nurse Practitioner
DX: Z12.31 Encounter for screening mammogram for malignant neoplasm of breast (principal)
CPT/HCPCS: 77063; 77067

== ENCOUNTER 2024-07-14 12:33 | Outpatient (CLI) | payer OTHER, SELFPAY ==
--- NOTE | ~2024-07-14 | XR_ITS ---
3 VIEWS LUMBAR SPINE Ordering provider: Kimo Garcia MD History: . M54.9 - Dorsalgia, unspecified . Comparison: None. FINDINGS: VERTEBRAL BODIES:Mild levoscoliosis. No visible fracture or subluxation. Degenerative changes of the spine. DISK SPACES: Normal. SOFT TISSUES: Normal. IMPRESSION: No acute osseous abnormality lumbar spine. Reviewed, dictated and finalized at location A.
[2024-07-14 13:31] LABS: Basophils Percent Auto 0.4 % (0.2-1.2); Eosinophils Absolute Auto 0.1 K/mm3 (0-0.3); Eosinophils Percent Auto 1.2 % (0-4.4); Hematocrit 42.8 % (37.0-47.0); Hemoglobin 14.2 g/dL (12.0-15.0); Immature Granulocyte Absolute 0.02 K/mm3 (0.00-0.031); Immature Granulocyte Percent A 0.3 % (0-0.5); Lymphocytes Absolute Auto 2.15 K/mm3 (0.9-3.2); Lymphocytes Percent Auto 31.9 % (18.3-44.2); Mean Corpuscular HGB Conc 33.2 g/dl (32-36); Mean Corpuscular Hemoglobin 30.4 pg (26-34); Mean Corpuscular Volume 91.6 fl (80-100); Mean Platelet Volume 9.9 fl (7.4-10.4); Monocytes Absolute Auto 0.4 K/mm3 (0.1-0.6); Monocytes Percent Auto 5.9 % (2.6-8.5); Neutrophils Absolute Auto 4.1 K/mm3 (1.3-6.7); Neutrophils Percent Auto 60.3 % (45.5-73.1); Platelet Count Result 266 k/mm3 (150-375); Red Blood Count 4.67 M/mm3 (4.2-5.4); Red Cell Distribution Width 12.3 % (11.5-14.5); White Blood Count 6.7 K/mm3 (4.5-10.0)
[2024-07-14 13:32] LABS: Add Urine Microscopic? NO; Appearance Urine Clear (Clear); Bilirubin Urine Negative (Negative); Blood Urine Negative (Negative); Color Urine Yellow (Yellow); Glucose Urine UA Negative (Negative); Ketones Urine 1+ mg/dL (Negative); Leukocyte Esterase Ur Negative LEU/UL (Negative); Nitrate Urine Negative (Negative); Protein Urine Negative (Negative); Specific Grav Ur 1.008 (1.001-1.035); Urobilinogen Urine 0.2 mg/dL (<2.0); pH Urine 5.5 (5.0-9.0)
[2024-07-14 13:37] LABS: Hemoglobin A1C 5.8 % (<5.7)
[2024-07-14 13:38] LABS: Alanine Aminotransferase 26 U/L (6-35); Albumin Level 4.8 g/dL (3.5-5.1); Alkaline Phosphatase 69 U/L (38-126); Anion Gap 11 mmol/L (4-12); Aspartate Amino Transferase 34 U/L (14-36); Bilirubin,Total 0.6 mg/dL (0.2-1.3); Blood Urea Nitrogen 15 mg/dL (7-17); Calcium 9.7 mg/dL (8.4-10.2); Carbon Dioxide 29 mmol/L (22-30); Chloride 98 mmol/L (98-107); Cholesterol 196 mg/dL (0-200); Estimated Glomerular Filt Rate > 60; Glucose 98 mg/dL (65-110); HDL Direct 64 mg/dL; Potassium 3.6 mmol/L (3.4-5.0); Sodium 138 mmol/L (137-145); Triglycerides 234 mg/dL (<150)
[2024-07-14 13:49] LABS: LDL Cholesterol Direct 97 mg/dL
[2024-07-14 13:55] LABS: Free T4 Free Thyroxine 1.19 ng/mL (0.78-2.19)
== END 2024-07-14 12:34 | disposition home or self-care (01) ==
LOC: ANHLAB 12:35
PROVIDERS: PCP Internal Medicine; Visit Provider Internal Medicine
DX: M54.9 Dorsalgia, unspecified (principal); I10 Essential (primary) hypertension; Z79.899 Other long term (current) drug therapy; Z13.29 Encounter for screening for other suspected endocrine disorder; R73.9 Hyperglycemia, unspecified; E78.5 Hyperlipidemia, unspecified; E55.9 Vitamin D deficiency, unspecified
CPT/HCPCS: 36415; 72110; 80053; 80061; 81003; 82306; 83036; 84439; 84443; 85025

== ENCOUNTER 2024-07-18 07:51 | Outpatient (CLI) | payer OTHER, SELFPAY ==
[2024-07-19 14:23] LABS: Creatinine, Random Urine 139 mg/dL (20-275); Total Protein/Creatinine Ratio 50 mg/g creat (24-184)
[2024-07-19 17:59] LABS: Protein, Total 6.7 g/dL (6.1-8.1)
[2024-07-20 09:24] LABS: Alpha 1 Globulin 0.3 g/dL (0.2-0.3); Alpha 2 Globulin 0.6 g/dL (0.5-0.9); Beta 1 Globulin 0.4 g/dL (0.4-0.6)
== END 2024-07-18 07:52 | disposition home or self-care (01) ==
PROVIDERS: PCP Internal Medicine; Visit Provider Internal Medicine
DX: R77.8 Other specified abnormalities of plasma proteins (principal)
CPT/HCPCS: 36415; 82570; 84155; 84156; 84165; 84166

== ENCOUNTER 2024-07-20 10:25 | Outpatient (CLI) | payer OTHER, SELFPAY ==
--- NOTE | ~2024-07-20 | XR_ITS ---
XR abdomen/kub 1V 07/20/2024 10:43 INDICATION: Intermittent right lower quadrant TECHNIQUE: KUB COMPARISON: None FINDINGS: Bowel gas pattern is normal. Moderate colonic fecal loading. There are surgical changes in the region of the stomach. There is no evidence of free air, mass, organomegaly, ascites or obstructi on. No abnormal calculi are seen. The bones appear intact. Lung bases are unremarkable. IMPRESSION: 1: No acute abdominal abnormality identified. Reviewed, dictated and finalized at location B.
== END 2024-07-20 10:26 | disposition home or self-care (01) ==
LOC: ANHIMG 10:27
PROVIDERS: PCP Internal Medicine; Visit Provider Internal Medicine
DX: R10.32 Left lower quadrant pain (principal); Z87.19 Personal history of other diseases of the digestive system
CPT/HCPCS: 74018

== ENCOUNTER 2025-01-11 07:33 | Outpatient (CLI) | payer OTHER, SELFPAY | END 2025-01-11 07:34 | disposition home or self-care (01) | LOC: ANHAUDIO 07:33 | PROVIDERS: PCP Internal Medicine; Visit Provider Internal Medicine | DX: H93.13 Tinnitus, bilateral (principal); H90.3 Sensorineural hearing loss, bilateral | CPT/HCPCS: 92557; 92567 ==

== ENCOUNTER 2025-08-23 08:37 | Outpatient (CLI) | payer OTHER, SELFPAY ==
--- NOTE | ~2025-08-23 | DEXA_ITS ---
Bone Density Report Name: SOPHIA ALONSO Age: 60 Sex: Female Ethnicity: White Date of : 1965 Indication: postmenopausal; screening for osteoporosis; seizure disorder; hysterectomy; Referring Provider: GLENNY MORELAND Study: Bone densitometry was performed. Exam Date: August 23, 2025 Accession number: [id number] Bone Density: Region BMD T-score Z-score Classification AP Spine(L1-L4) 1.044 0.0 1.4 Normal Femoral Neck (Left) 0.907 0.5 1.8 Normal Total Hip (Left) 1.134 1.6 2.5 Normal Femoral Neck (Right) 0.943 0.8 2.1 Normal Total Hip (Right) 1.075 1.1 2.0 Normal Total Hip Mean 1.104 1.4 2.3 Normal World Health Organization criteria for BMD impression classify patients as: Normal (T-score at or above -1.0), Osteopenia (T-score between -1.0 and -2.5), or Osteoporosis (T-score at or below -2.5). 10-year Fracture Risk: FRAX not reported because: All T-scores for Spine Total, Hip Total, Femoral Neck at or above -1.0 Previous Exams: Region Exam Age BMD T-score BMD Change BMD Change Date g/cm2 vs Baseline vs Previous AP Spine (L1-L4) 08/23/2025 60 1.044 0.0 -0.017 (-1.6%) 0.053 (5.3%)* 11/05/2021 56 0.992 -0.5 -0.070 (-6.6%) -0.070 (-6.6%) 10/20/2016 51 1.062 0.1 Total Hip(Left) 08/23/2025 60 1.134 1.6 0.061 (5.7%)* 0.042 (3.8%)* 11/05/2021 56 1.093 1.2 0.019 (1.8%) 0.019 (1.8%) 10/20/2016 51 1.074 1.1 Total Hip(Right) 08/23/2025 60 1.075 1.1 -0.072 (-6.3%) -0.014 (-1.3%) 11/05/2021 56 1.089 1.2 -0.058 (-5.1%) -0.058 (-5.1%) 10/20/2016 51 1.147 1.7 *Denotes significance at 95% confidence level, LSC for AP Spine = 0.022 g/cm2, LSC for Total Hip = 0.027 g/cm2 Clinical Information Provided by Patient: Has used the following medications: Vitamin D, Calcium Has the following medical conditions: Any Seizure Disorders, Hysterectomy Patient maximum height was 64 Menopause Age: 48 No regular weight bearing exercise Drinks caffeinated beverages Onset of menses at age 14 Number of children 2 Impression: The patient has normal bone mass. No significant bone loss was observed. Discussion: BONE DENSITY IS ABOVE THE MINIMUM DESIRABLE LEVEL AT ALL SKELETAL SITES TESTED. This patient?s bone mineral density is above the minimum desirable level (T-score -1.0 or better) at all sites measured. The patient should follow a healthful lifestyle (good nutrition with adequate calcium and vitamin D, and appropriate weight-bearing exercise). Follow-Up: Consider repeating this study in 5 years or sooner if there is some new clinical indication. Reported by: BARRON on 08/23/2025 9:23:00 AM. Reviewed, dictated and finalized at location A.
--- NOTE | ~2025-08-23 | MM_ITS ---
EXAMINATION: MM screening jann BI w agus HISTORY: Screening TECHNIQUE: Craniocaudal and mediolateral oblique 3-D tomosynthesis images were obtained and synthetic 2-D images were generated. CAD analysis was submitted and interpreted. COMPARISON: 01/22/2023 BREAST PARENCHYMAL COMPOSITION: The breasts are heterogeneously dense, which may obscure small masses. FINDINGS: There is no evidence of suspicious mass, calcification, or architectural distortion to suggest malignancy. Asymmetry in the upper right breast, middle depth, seen in the right MLO projection. Asymmetry in the upper left breast, middle depth, seen in the left MLO projection. IMPRESSION: 1. Asymmetry in the upper right breast, middle depth, seen in the right MLO projection. The study is incomplete. A diagnostic mammogram and a diagnostic ultrasound are recommended. 2. Asymmetry in the upper left breast, middle depth, seen in the left MLO projection. The study is incomplete. A diagnostic mammogram and a diagnostic ultrasound are recommended. BI-RADS 0: Incomplete-Need additional imaging evaluation. Reviewed, dictated and finalized at location Q. IMPRESSION: 1. Asymmetry in the upper right breast, middle depth, seen in the right MLO pro jection. The study is incomplete. A diagnostic mammogram and a diagnostic ultra sound are recommended. 2. Asymmetry in the upper left breast, middle depth, seen in the left MLO proje ction. The study is incomplete. A diagnostic mammogram and a diagnostic ultraso und are recommended. BI-RADS 0: Incomplete-Need additional imaging evaluation.
--- OUTSIDE RECORDS SUMMARY | 2025-08-23 08:41 | XMS_ITS | Clinical Summary ---
Author Organization [facility] Address [address] [place] [address] Care Team Providers Care Operations Specialists Name Role Phone Deepthi Valles RN Unavailable [phone] Awais Bacon DO Primary Care Provider [phone] Source Comments [facility],non-owned Affiliates and Associated Physician Practices is amultiple site organization consisting of ambulatory clinics and hospital sitesin [place], [place], [place] and [place]. This disclosure is being madepursuant to the Care Everywhere program and may not contain all information available regarding this patient. Last updated 18.[facility] Allergies No known active allergies Medications * Be aware that medications may not be up to date on this document. Alwaysverify current medications with the patient. metoprolol succinate XL 24hr (TOPROL XL) 50 MG tablet Take 25 mg by mouth once daily Active Nutritional Supplements (ESTROVEN PO) Take by mouth once daily. Active ALPRAZolam (XANAX) 0.25 MG tablet Take 0.25 mg by mouth 3 times daily as needed for Anxiety. Active losartan (COZAAR) 100 MG tablet Take 1 Tab by mouth once daily. 30 Tab 0 5 Active Additional Information Patient taking differently: 50 mgOral DAILY, Reported on 07/22/2015 Multiple Vitamin (MULTIVITAMINS PO)Indications:P ROCARE VITAMINS Take by mouth. Indications: PROCARE VITAMINS Active aspirin EC (ECOTRIN) 81 MG tablet Take 81 mg by mouth once daily Active sucralfate (CARAFATE) 1 GM/10ML suspension Take 10 mL by mouth 4 times daily 480 mL 0 5 Active Active Problems Problem Noted Date Diagnosed Date HTN (hypertension) 10/29/2014 High cholesterol 10/29/2014 Social History Tobacco Use Types Packs/Day Years Used Date Smoking Tobacco: Former Cigarettes Q uit: 08/29/2013 Smokeless Tobacco: Never Alcohol Use Standard Drinks/Week Comments No 0 (1 standard drink = 0.6 oz pur e alcohol) Comments No Sex and Gender Information Value Date Recorded Sex Assigned at Not on file Legal Sex Female 10:37 AM CDT Gender Identity Not on file Sexual Orientation Not on file Last Filed Vital Signs Vital Sign Reading Time Taken Comments Blood Pressure 116/72 04/06/2016 10:20 AM CDT Pulse 71 04/06/2016 10:20 AM CDT Temperature 36.4 C (97.5 F) 07/23/2015 6:19 PM CDT Respiratory Rate 16 07/23/2015 6:19 PM CDT Oxygen Saturation 95% 07/23/2015 6:19 PM CDT Inhaled Oxygen Concentration - - Weight 78 kg (172 lb) 04/06/2016 10:20 AM CDT Height 160 cm (5' 3) 04/06/2016 10:20 AM CDT Body Mass Index 30.47 04/06/2016 10:20 AM CDT Plan of Treatment Health Maintenance Due Date Last Done Comments COLOGUARD (AGES 45-75) - COL ON CA SCREENING 1966 COLON MONITORING 1966 COLONOSCOPY - COLON CA SCREENING 1966 CT COLONOGRAPHY - COLON CA SCREENING 1966 Colorectal Cancer Screening 1966 FIT - COLON CA SCREENING 1966 FLEX SIG - COLON CA SCREENING 1966 LIPID TESTING 1966 MAMMOGRAM 1966 HIV SCREENING 1981 HEPATITIS C SCREENING 01/04/1984 DTAP/TDAP/TD VACCINES (1 - Tdap) 1985 HEPATITIS B VACCINE (1 of 3 - 19+ 3-dose series) 1985 PNEUMOCOCCAL VACCINE 50+ (1 of 1 - PCV) 2016 ZOSTER VACCINE (1 of 2) 2016 DEPRESSION SCREENING 11/29/2024 COVID-19 VACCINE (1 - 2023-2 5 season) 2025 INFLUENZA VACCINE (#1) 2025 HIB VACCINE Aged Out No longer eligi ble based on patient's age to complete this topic HPV VACCINE Aged Out No longer eligi ble based on patient's age to complete this topic MENINGOCOCCAL (Group B) VACC INE SHARED DECISION-MAKING Aged Out No longer eligibl e based on patient's age to complete this topic MENINGOCOCCAL GROUPS A/C/Y/W VACCINE Aged Out No longer eligible b ased on patient's age to complete this topic Insurance ANTHEM Advance Directives * Full Code (Latest Code Status on File) Date Activated Date Inactivated Comments 03/05/2015 12:08 PM 03/07/2015 12:02 AM Care Teams Operations Specialists Relationship Specialty Start Date End Date Awais Bacon DO PCP - General Internal Medicine 04/06/16 Deepthi Valles, JUAN LUIS Director Of Quality 03/06/15
== END 2025-08-23 08:38 | disposition home or self-care (01) ==
LOC: ANHFOHIMG 08:39
PROVIDERS: PCP Internal Medicine; Visit Provider Internal Medicine
DX: Z12.31 Encounter for screening mammogram for malignant neoplasm of breast (principal); N95.9 Unspecified menopausal and perimenopausal disorder; R92.8 Other abnormal and inconclusive findings on diagnostic imaging of breast
CPT/HCPCS: 77063; 77067; 77080

== ENCOUNTER 2025-09-25 11:06 | Outpatient (CLI) | payer OTHER, SELFPAY ==
--- NOTE | ~2025-09-25 | MM_ITS ---
CORRECTED REPORT attached ultrasound to radiologist report [facility] 10/01/2025 This report was recreated on 10/01/2025. Original report was EXAMINATION: MM diagnostic jann BI w agus, US breast BI complete HISTORY: Follow-up breast asymmetries. TECHNIQUE: Additional 3-D tomosynthesis images of the breasts were performed and synthetic 2-D images were generated. CAD analysis was submitted and interpreted. High resolution breast ultrasound was performed. COMPARISON: 08/23/2025 BREAST PARENCHYMAL COMPOSITION: Dense: The breasts are heterogeneously dense, which may obscure small masses FINDINGS: MAMMOGRAPHIC FINDINGS: There is a small radiolucent mass in the upper central aspect of the right breast, middle third. There are no suspicious masses, calcifications or architectural distortion in the left breast to suggest malignancy. ULTRASOUND: Complete US of all 4 quadrants of the breast/s and retroareolar region was reviewed. Right breast: At 11:00, 3 cm from the nipple there is an oval hypoechoic mass measuring 8 x 5 x 6 mm with slightly irregular margins, no significant posterior features and no internal vascularity. Lateral margins are irregular. Left breast: At 3:00, 6 cm from the nipple there is a minimally complicated 5 mm cyst, likely benign. IMPRESSION: 1. Slightly irregular shaped 8mm right breast mass at 11:00, 3 cm from the nipple. Ultrasound-guided biopsy recommended. 2. Probable benign complicated cyst of the left breast at 3:00, 6 cm from the nipple measuring 5 mm. Six-month follow-up ultrasound recommended to assess stability. BI-RADS category 4, suspicious findings. Reviewed, dictated and finalized at location B. IMPRESSION: 1. Slightly irregular shaped 8mm right breast mass at 11:00, 3 cm from the nipp le. Ultrasound-guided biopsy recommended. 2. Probable benign complicated cyst of the left breast at 3:00, 6 cm from the n ipple measuring 5 mm. Six-month follow-up ultrasound recommended to assess stab ility. BI-RADS category 4, suspicious findings.
--- OUTSIDE RECORDS SUMMARY | 2025-09-25 13:08 | XMS_ITS | Clinical Summary ---
Author Organization [facility] [employer] Address [address] [place] [address] Care Team Providers Care Claim Approver Name Role Phone Deepthi Valles RN Unavailable [phone] Awais Bacon DO Primary Care Provider [phone] Source Comments [facility] [employer] [facility],non-owned Affiliates and Associated Physician Practices is amultiple site organization consisting of ambulatory clinics and hospital sitesin [place], [place], [place] and [place]. This disclosure is being madepursuant to the Care Everywhere program and may not contain all information available regarding this patient. Last updated 18.[facility] Allergies No known active allergies Medications * [...] 12:08 PM 03/07/2015 12:02 AM Care Teams Claim Approver Relationship Specialty Start Date End Date Awais Bacon DO PCP - General Internal Medicine 04/06/16 Deepthi Valles, JUAN LUIS Unix Manager 03/06/15
== END 2025-09-25 11:07 | disposition home or self-care (01) ==
LOC: ANHFOHIMG 11:07
PROVIDERS: PCP Internal Medicine; Visit Provider Internal Medicine
DX: R92.8 Other abnormal and inconclusive findings on diagnostic imaging of breast (principal); N63.11 Unspecified lump in the right breast, upper outer quadrant; N60.02 Solitary cyst of left breast
CPT/HCPCS: 76641; 77062; 77066; G0279

== ENCOUNTER 2025-10-09 08:02 | Outpatient (CLI) | payer OTHER, SELFPAY ==
--- NOTE | ~2025-10-09 | MMUS_ITS ---
US breast biopsy RT w image, MM post biopsy diagnostic RT EXAMINATION: US GUIDED NEEDLE BIOPSY WITH VACUUM ASSISTANCE DATE: 10/09/2025 09:16 [employer] INDICATION: Right breast mass seen on prior examination. Ultrasound-guided core biopsy is requested to evaluate for malignancy. BREAST PARENCHYMAL COMPOSITION: Dense: The breasts are heterogeneously dense, which may obscure small masses TECHNIQUE AND FINDINGS: The risks and potential benefits of the procedure were discussed with the patient, and written informed consent was obtained. After sterile preparation of the right breast, 1% lidocaine was utilized for local anesthesia. 1% lidocaine with epinephrine was used for deep anesthesia. A 10G vacuum-assisted biopsy gun needle was advanced through to the outer edge of the region of interest from a superior approach utilizing sonographic guidance. A total of 4 tissue core samples were obtained through the lesion. An Inrad tissue marker clip was then placed at the biopsy site. Hemostasis was achieved. The patient tolerated procedure well and there was no evidence of immediate complication. The patient was given verbal instructions partly is from the department. Right breast mammograms to document tissue marker clip placement. The tissue samples were submitted to surgical pathology for histologic analysis. IMPRESSION: 1. Successful ultrasound-guided vacuum-assisted biopsy of right breast mass with post procedure mammogram for marker placement. Please refer to pathology report for histologic analysis. Reviewed, dictated and finalized at location C. [employer] IMPRESSION: 1. Successful ultrasound-guided vacuum-assisted biopsy of right breast mass wi th post procedure mammogram for marker placement. Please refer to pathology rep ort for histologic analysis.
--- NOTE | 2025-10-09 08:59 | S_PTH ---
PATIENT: Roseline Wagner LOC: [facility] #:[id number] AGE/SX: 60/F ROOM: RE10/09/[address]: Tiffany Aguilar MD : 1965 BED: DIS: 10/09/2025 SPEC #: [id number] RECD: 10/09/25 12:27 STATUS: GAURAV REBob #: [id number] JIMENEZ: 10/09/25 08:[address]: Tiffany Aguilar DEPT: [facility] Surgical RECD BY: Bhavik Troncoso ENTERED: 10/09/25 12:27 SP TYPE: Surgical OTHR DR: Kimo Garcia MD Tissues: A - Breast Biopsy Procedures: Hematoxylin and Eosin Stain Gross and Microscopic Level 4
== END 2025-10-09 08:03 | disposition home or self-care (01) ==
PROVIDERS: PCP Internal Medicine; Visit Provider Surgery
DX: R92.8 Other abnormal and inconclusive findings on diagnostic imaging of breast (principal); N63.11 Unspecified lump in the right breast, upper outer quadrant
CPT/HCPCS: 19083; 77065; 88305; A4648